=== PATIENT | female | born 2000 | race Caucasian/White ===

== ENCOUNTER 2022-03-12 22:14 | Inpatient (IN) | payer BC ==
[~2022-03-12 22:14] MED LIST: Bupivacaine 0.25% 10 ML SDV EPIDUR ONE; Lidocaine 1.5% with EPINEPHrine 1:200,000 5 ML Amp EPIDUR ONE
[2022-03-12] MEDS ORDERED: Ondansetron 4 MG/2 ML SDV IV ONE (22:56)
[2022-03-12] MEDS ORDERED: Lactated Ringers 1,000 ML IV ONE (23:00)
[2022-03-12] MEDS ORDERED: fentaNYL 100 MCG/2 ML SDV EPIDUR ONE (23:29)
[2022-03-12] MEDS ORDERED: Bupivacaine/fentaNYL/NS 100 ML Bag EPIDUR ONE (23:30)
[2022-03-13] MEDS ORDERED: Ibuprofen 600 MG Tab PO ONE
[2022-03-14] MEDS ORDERED: Ibuprofen 600 MG Tab PO ONE
== END 2022-03-15 11:58 | disposition home or self-care (01) | DRG 542 ==
LOC: JD.OBCHECK 22:14 → JD.ZCENSUS 22:21
PROVIDERS: ADMIT Obstetrics & Gynecology; ATTEND Obstetrics & Gynecology
PROC: 3E0R3BZ Introduction of Anesthetic Agent into Spinal Canal, Percutaneous Approach (ICD-10-PCS; principal; 2022-03-12)
PROC: 10E0XZZ Delivery of Products of Conception, External Approach (ICD-10-PCS; principal; 2022-03-12)
PROC: 3E0334Z Introduction of Serum, Toxoid and Vaccine into Peripheral Vein, Percutaneous Approach (ICD-10-PCS; principal; 2022-03-12)
PROC: 0DQP0ZZ Repair Rectum, Open Approach (ICD-10-PCS; principal; 2022-03-12)
DX: O26.893 Other specified pregnancy related conditions, third trimester (principal); O70.3 Fourth degree perineal laceration during delivery; Z3A.38 38 weeks gestation of pregnancy; Z37.0 Single live birth; Z67.11 Type A blood, Rh negative
CPT/HCPCS: 01967; 36415; 51702; 59025; 59409; 85025; 85461; 86592; 86850; 86870; 86900; 86901; A9270-GY; J2405; J2790; J3010; J3490; J7120

== ENCOUNTER 2023-06-30 01:54 | Inpatient (IN) | payer BC ==
[2023-06-30] MEDS ORDERED: Nalbuphine HCl 10 MG/ 1ML Amp IVPUSH PRN (02:12)
[2023-06-30] MEDS ORDERED: Ondansetron 4 MG/2 ML SDV IVPUSH PRN (02:12)
[2023-06-30] MEDS ORDERED: Lidocaine 1% 50 ML MDV INJECT PRN (02:12)
[2023-06-30] MEDS ORDERED: Oxytocin/Lactated Ringers 30 UNIT/500 ML BAG IV SCH ×2 (02:15→09:15)
[2023-06-30 02:28] LABS: BASOPHILS ABSOLUTE AUTO 0.1 K/mm3 (0.0-0.2); BASOPHILS PERCENT AUTO 0.4 % (0.0-1.0); EOSINOPHILS ABSOLUTE AUTO 0.1 K/mm3 (0.0-0.4); EOSINOPHILS PERCENT AUTO 1.1 % (0.0-6.0); HEMATOCRIT 35.5 % (37.0-47.0); HEMOGLOBIN 12.1 gm/dl (12.0-16.0); IMMATURE GRAN ABSOLUTE AUTO 0.05 K/mm3 (0.00-0.05); IMMATURE GRAN PERCENT AUTO 0.4 % (0.0-0.4); LYMPHOCYTES ABSOLUTE AUTO 3.2 K/mm3 (1.0-4.8); LYMPHOCYTES PERCENT AUTO 24.1 % (24.0-44.0); MEAN CORPUSCULAR HEMOGLOBIN 31.2 pg (28.0-32.0); MEAN CORPUSCULAR HGB CONC 34.1 g/dl (32.0-36.0); MEAN CORPUSCULAR VOLUME 91.5 fl (83.0-99.0); MEAN PLATELET VOLUME 11.7 fl (9.4-12.3); MONOCYTES ABSOLUTE AUTO 0.8 K/mm3 (0.0-0.8); MONOCYTES PERCENT AUTO 6.2 % (0.0-8.0); NEUTROPHILS ABSOLUTE AUTO 9.1 K/mm3 (1.8-7.7); NEUTROPHILS PERCENT AUTO 67.8 % (41.0-71.0); PLATELET COUNT,PLT 211 K/mm3 (150-400); RED BLOOD CELL COUNT 3.88 M/mm3 (4.10-5.30); WHITE BLOOD CELL COUNT,WBC 13.33 K/mm3 (3.9-11.3)
[2023-06-30] MEDS ORDERED: Bupivacaine/fentaNYL/NS 100 ML Bag EPIDUR PRN (02:28)
[2023-06-30] MEDS ORDERED: diphenhydrAMINE 50 MG/ML SDV IVPUSH PRN (02:28)
[2023-06-30] MEDS ORDERED: fentaNYL 100 MCG/2 ML SDV EPIDUR PRN (02:28)
[2023-06-30] MEDS ORDERED: ePHEDrine 50 MG/ML SDV IVPUSH PRN (02:28)
[2023-06-30] MEDS: Lactated Ringers 1,000 ML IV SCH ×2 (02:30→03:16)
[2023-06-30] MEDS ORDERED: Bupivacaine 0.25% 10 ML SDV ONE (08:00)
[2023-06-30] MEDS ORDERED: Lidocaine 1% 10 ML MDV ONE (08:00)
[2023-06-30] MEDS ORDERED: Sodium Chloride 0.9% 10 ML Syringe FLUSH SCH (09:00)
[2023-06-30] MEDS ORDERED: Benzocaine/Menthol 20%-0.5% Spray 78 GM Cannister TOP PRN (09:15)
[2023-06-30] MEDS ORDERED: Witch Hazel Medicated Pads 40/Jar TOP PRN (09:15)
[2023-06-30] MEDS ORDERED: Magnesium Hydroxide 400 MG/5 ML Susp 30 ML Cup PO PRN (09:15)
[2023-06-30] MEDS ORDERED: Acetaminophen 325 MG Tab PO PRN (09:15)
[2023-06-30] MEDS ORDERED: Hydrocortisone Acetate 25 MG Supp RECTAL PRN (09:15)
[2023-06-30] MEDS ORDERED: Docusate Sodium 100 MG Cap PO PRN (09:15)
[2023-06-30] MEDS: Prenatal Multivitamin with Calcium/Folic Acid/Iron Tab PO SCH (12:23)
[2023-06-30] MEDS: Ibuprofen 600 MG Tab PO PRN ×2 (14:04→21:10)
[2023-07-01] MEDS: Ibuprofen 600 MG Tab PO PRN (04:07)
[2023-07-01] MEDS: Prenatal Multivitamin with Calcium/Folic Acid/Iron Tab PO SCH (13:32)
== END 2023-07-01 11:01 | disposition home or self-care (01) | DRG 560 ==
LOC: JD.OBCHECK 01:54 → JD.OB 02:00 → JD.OBCHECK 02:01 → JD.OB 02:01 → OBSVTOIN 07:05 → JD.OB 07:06
PROVIDERS: ADMIT Obstetrics & Gynecology; ATTEND Obstetrics & Gynecology
PROC: 10E0XZZ Delivery of Products of Conception, External Approach (ICD-10-PCS; principal; 2023-06-30)
PROC: 0KQM0ZZ Repair Perineum Muscle, Open Approach (ICD-10-PCS; 2023-06-30)
PROC: 3E0334Z Introduction of Serum, Toxoid and Vaccine into Peripheral Vein, Percutaneous Approach (ICD-10-PCS; 2023-06-30)
PROC: 3E0R3BZ Introduction of Anesthetic Agent into Spinal Canal, Percutaneous Approach (ICD-10-PCS; 2023-06-30)
PROC: 00HU33Z Insertion of Infusion Device into Spinal Canal, Percutaneous Approach (ICD-10-PCS; 2023-06-30)
PROC: 3E033VJ Introduction of Other Hormone into Peripheral Vein, Percutaneous Approach (ICD-10-PCS; 2023-06-30)
DX: O42.02 Full-term premature rupture of membranes, onset of labor within 24 hours of rupture (principal); Z37.0 Single live birth; O70.1 Second degree perineal laceration during delivery; O26.893 Other specified pregnancy related conditions, third trimester; Z67.11 Type A blood, Rh negative; Z3A.38 38 weeks gestation of pregnancy; Z98.890 Other specified postprocedural states
CPT/HCPCS: 36415; 51701; 51702; 59025; 59409; 85025; 85461; 86592; 86850; 86870; 86900; 86901; A9270-GY; J2790; J3010; J3490; J7120; J7999

== ENCOUNTER 2025-05-16 12:06 | Inpatient (IN) | payer BC ==
[~2025-05-16 12:06] MED LIST changes: -Bupivacaine 0.25% 10 ML SDV EPIDUR ONE; -Lidocaine 1.5% with EPINEPHrine 1:200,000 5 ML Amp EPIDUR ONE; +Lidocaine 2% with EPINEPHrine 1:200,000 20 ML SDV ONE
[2025-05-16] MEDS ORDERED: Nalbuphine 10 MG/1 ML Vial IVPUSH PRN (12:43)
[2025-05-16] MEDS ORDERED: Ondansetron 4 MG/2 ML SDV IVPUSH PRN (12:43)
[2025-05-16] MEDS ORDERED: Sodium Chloride 0.9% 10 ML Syringe FLUSH PRN (12:43)
[2025-05-16] MEDS ORDERED: Oxytocin/0.9 % Sodium Chloride 30 UNIT/500 ML BAG IV SCH (12:45)
[2025-05-16] MEDS: Lactated Ringers 1,000 ML IV SCH (13:05)
[2025-05-16 13:08] LABS: BASOPHILS ABSOLUTE AUTO 0.0 K/mm3 (0.0-0.2); BASOPHILS PERCENT AUTO 0.3 % (0.0-1.0); EOSINOPHILS ABSOLUTE AUTO 0.0 K/mm3 (0.0-0.4); EOSINOPHILS PERCENT AUTO 0.2 % (0.0-6.0); IMMATURE GRAN ABSOLUTE AUTO 0.04 K/mm3 (0.00-0.05); IMMATURE GRAN PERCENT AUTO 0.4 % (0.0-0.4); LYMPHOCYTES ABSOLUTE AUTO 1.9 K/mm3 (1.0-4.8); LYMPHOCYTES PERCENT AUTO 19.0 % (24.0-44.0); MEAN PLATELET VOLUME 10.6 fl (9.4-12.3); MONOCYTES ABSOLUTE AUTO 0.5 K/mm3 (0.0-0.8); MONOCYTES PERCENT AUTO 5.3 % (0.0-8.0); NEUTROPHILS ABSOLUTE AUTO 7.4 K/mm3 (1.8-7.7); NEUTROPHILS PERCENT AUTO 74.8 % (41.0-71.0); NRBC ABSOLUTE 0.00 (0.00-0.02); NRBC PERCENT 0.0 % (0.0-0.2); PLATELET COUNT,PLT 219 K/mm3 (150-400); RED BLOOD CELL COUNT 4.05 M/mm3 (4.10-5.30); WHITE BLOOD CELL COUNT,WBC 9.94 K/mm3 (3.9-11.3)
[2025-05-16] MEDS ORDERED: fentaNYL 100 MCG/2 ML SDV EPIDUR PRN (13:26)
[2025-05-16] MEDS ORDERED: diphenhydrAMINE 50 MG/ML SDV IVPUSH PRN (13:26)
[2025-05-16] MEDS ORDERED: ePHEDrine 50 MG/ML SDV IVPUSH PRN (13:26)
[2025-05-16 13:34] LABS: CREATININE,URINE RAND 35.8 mg/dL (30.0-125.0)
[2025-05-16 13:35] LABS: PROTEIN,URINE RANDOM < 6.0 mg/dL (0.0-11.8)
[2025-05-16 13:37] LABS: ALANINE AMINOTRANSFERASE,ALT 12.0 U/L (14-59); ASPARTATE AMNIOTRANSFERASE,AST 16.0 U/L (15-37); BLOOD UREA NITROGEN,BUN 6.0 mg/dL (7-18); CREATININE 0.6 mg/dL (0.55-1.02); EST CRCL DRUG DOSING (CG) 121.62 mL/min; ESTIMATED GFR 126.0 mL/min (>60); LACTATE DEHYDROGENASE,LDH 179.0 U/L (81-234)
[2025-05-16] MEDS: Bupivacaine/fentaNYL/NS 100 ML Bag EPIDUR PRN (13:50)
[2025-05-16] MEDS: Oxytocin/0.9 % Sodium Chloride 30 UNIT/500 ML BAG IV SCH (16:30)
[2025-05-16] MEDS ORDERED: Witch Hazel Medicated Pads 40/Jar TOP PRN (17:14)
[2025-05-16] MEDS ORDERED: Benzocaine/Menthol 20%-0.5% Spray 78 GM Cannister TOP PRN (17:14)
[2025-05-16] MEDS ORDERED: Magnesium Hydroxide 400 MG/5 ML Susp 30 ML Cup PO PRN (17:14)
[2025-05-17] MEDS: Prenatal Multivitamin with Calcium/Folic Acid/Iron Tab PO SCH (08:59)
== END 2025-05-17 18:25 | disposition home or self-care (01) | DRG 560 ==
LOC: JD.OBCHECK 12:06 → JD.OB 12:07 → JD.OBCHECK 12:42 → JD.OB 12:43 → OBSVTOIN 16:30 → JD.OB 16:31
PROVIDERS: ADMIT Obstetrics & Gynecology; ATTEND Obstetrics & Gynecology
PROC: 0KQM0ZZ Repair Perineum Muscle, Open Approach (ICD-10-PCS; principal; 2025-05-16)
PROC: 10907ZC Drainage of Amniotic Fluid, Therapeutic from Products of Conception, Via Natural or Artificial Opening (ICD-10-PCS; principal; 2025-05-16)
PROC: 10E0XZZ Delivery of Products of Conception, External Approach (ICD-10-PCS; principal; 2025-05-16)
PROC: 3E0R3BZ Introduction of Anesthetic Agent into Spinal Canal, Percutaneous Approach (ICD-10-PCS; principal; 2025-05-16)
PROC: 3E0334Z Introduction of Serum, Toxoid and Vaccine into Peripheral Vein, Percutaneous Approach (ICD-10-PCS; principal; 2025-05-16)
DX: O70.1 Second degree perineal laceration during delivery (principal); Z3A.38 38 weeks gestation of pregnancy; Z37.0 Single live birth; Z67.11 Type A blood, Rh negative
CPT/HCPCS: 36415; 36430; 51701; 59025; 59409; 82565; 82570; 83615; 84156; 84450; 84460; 84520; 84550; 85025; 85461; 86592; 86850; 86870; 86900; 86901; A9270-GY; C1758; J2004; J2791; J3490; J7120; J7999